=== PATIENT | female | born 1950 | race Caucasian/White ===

== ENCOUNTER 2019-02-12 19:21 | Emergency (ER) | payer MEDICARE, OTHER ==
--- NOTE | 2019-02-12 19:56 | EDM.PDOC ---
ED HPI GENERAL MEDICAL PROBLEM - General Chief Complaint: Lower Extremity Injury/Pain Stated Complaint: PT FELL OUTSIDE ON BOTH KNEES IN PAIN Time Seen by Provider: 02/12/19 19:42 Source of Information: Reports: Patient, Family (daughter) History Limitations: Reports: No Limitations - History of Present Illness INITIAL COMMENTS - FREE TEXT/NARRATIVE: 68-year-old female presents the ED after missing a stair at her neighbor's home and tripping and falling. She landed on outstretched hands and both knees. The left knee was injured worse than the right. 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 2010 suffered a comminuted fracture of her distal left femur requiring plating and rodding I believe. She is complaining of significant pain in the left knee and proximal tib-fib with difficulty walking. Pain also when she tries to oven roaster my fingers with her left hand. Hard amount of ecchymoses appreciated over both anterior knees. Plan x- ray left femur and left tib-fib. X-ray right tib-fib which will show me her knee. An x-ray left hand. Of note the patient is on Plavix on her med list although she doesn't think she's on this anymore. She is only on aspirin once daily and therefore the ecchymoses is exacerbated by this. Onset: Today Onset Date: 02/12/19 Onset Time: 17:30 Duration: Hour(s): Location: Reports: Upper Extremity, Left (Left hand and wrist), Upper Extremity , Right (Right hand and wrist but full range of motion), Lower Extremity, Left ( Left knee and proximal tib-fib), Lower Extremity, Right (Right knee) Quality: Reports: Ache, Throbbing Severity: Moderate (Especially in the left knee and proximal tib-fib.) Improves with: Reports: Rest Worsens with: Reports: Other Context: Reports: Trauma (Tripped and fell and missed a stair landing on concrete both knees and both outstretched hands.). Denies: Activity, Exercise, Lifting, Sick Contact Associated Symptoms: Reports: Other (Did not hit her head.). Denies: Confusion , Chest Pain, Cough, cough w sputum, Diaphoresis, Fever/Chills, Headaches, Loss of Appetite, Malaise, Nausea/Vomiting Treatments BREAKDOWN MAN: Reports: Other (see below) (None.) Bilateral Knee Pain Score (Numeric/FACES): 4 Left Wrist Pain Score (Numeric/FACES): 6 - Related Data Allergies Allergy/AdvReac Type Severity Reaction Status Date / Time No Known Allergies Allergy Verified 02/12/19 19:49 Home Meds: Home Meds Ascorbic Acid [Vitamin C] 500 mg PO DAILY 08/24/15 [History] Aspirin [Adult Low Dose Aspirin EC] 81 mg PO DAILY 08/24/15 [History] Biotin 5 mg PO DAILY 08/24/15 [History] Calcium Carb & Citrate/Vit D3 [Calcium + D3 ER Tablet] 1 each PO DAILY 08/24/15 [History] Cholecalciferol (Vitamin D3) [Vitamin D] 5,000 unit PO DAILY 08/24/15 [History] Clopidogrel [Plavix] 75 mg PO DAILY 08/24/15 [History] Lisinopril 10 mg PO DAILY 08/24/15 [History] Multivitamin [Multivitamins] 1 each PO DAILY 08/24/15 [History] Nitroglycerin 0.4 mg SL ASDIRECTED PRN 08/24/15 [History] atorvaSTATin [Lipitor] 40 mg PO BEDTIME 08/24/15 [History] Past Medical History Cardiovascular History: Reports: CAD, High Cholesterol, Hypertension Endocrine/Metabolic History: Reports: Obesity/BMI 30+ - Past Surgical History Cardiovascular Surgical History: Reports: Coronary Artery Stent Musculoskeletal Surgical History: Reports: Knee Replacement, ORIF Social & Family History - Caffeine Use Caffeine Use: Reports: None - Living Situation & Occupation Living situation: Reports: , Alone Occupation: Retired Review of Systems - Review of Systems Review Of Systems: See Below Constitutional: Reports: No Symptoms Eyes: Reports: Glasses Mouth/Throat: Reports: No Symptoms Respiratory: Reports: Shortness of Breath Cardiovascular: Reports: Other (Chronic dependent edema.). Denies: Chest Pain, Edema, Irregular Heart Rate Genitourinary: Reports: Other Musculoskeletal: Reports: No Symptoms, Neck Pain, Back Pain Skin: Reports: No Symptoms Neurological: Reports: No Symptoms Psychiatric: Reports: No Symptoms ED EXAM, GENERAL - Physical Exam Exam: See Below Exam Limited By: No Limitations General Appearance: Alert, WD/WN, Anxious, Mild Distress, Other (She is mad at herself for missing the stair and causing an accident.) Eye Exam: Bilateral Eye: Normal Inspection Throat/Mouth: Normal Inspection, Normal Lips, Normal Oropharynx, Other Head: Atraumatic, Normocephalic (No signs of head or facial trauma.) Neck: Normal Inspection, Supple, Limited Range of Motion. No: Full Range of Motion, Lymphadenopathy (L), Lymphadenopathy (R) Respiratory/Chest: No Respiratory Distress, Lungs Clear, Normal Breath Sounds, No Accessory Muscle Use Cardiovascular: Normal Peripheral Pulses, Regular Rate, Rhythm, No Murmur, No Rub. No: No Edema Peripheral Pulses: 1+: Posterior Tibial (L), Posterior Tibial (R), Dorsalis Pedis (L), Dorsalis Pedis (R) GI/Abdominal: Normal Bowel Sounds (Pulses are difficult to feel because of some edema around the ankles bilaterally.), Soft, Non-Tender, No Organomegaly, Other (No evidence of injury. Moderately obese.) Extremities: Other (Patient has ecchymoses over the right anterior knee with previous well-healed midline scar from total knee replacement. She does have full range of motion of the knee however with no crepitus and minimal pain. On the left side there is a large amount of hematoma over the knee and proximal tib -fib. She is able to keep it extended but flexion of the knee causes increased pain. Her previous fracture distal left femur with rodding and plating required. She also has pain in her left hand went on attempt to oven roaster my fingers. No pain in either wrist. Right hand uninjured.) Neurological: Alert, Oriented, CN II-XII Intact, Normal Cognition, Normal Gait Psychiatric: Normal Affect, Normal Mood Skin Exam: Warm, Dry, Intact, Normal Color, Ecchymosis (Marked ecchymoses of the left anterior knee and proximal tib-fib. Milder ecchymoses dorsal aspect right knee.) Course - Vital Signs Last Recorded V/S: Last Vital Signs Temp 37.2 C 02/12/19 19:46 Pulse 94 02/12/19 19:46 Resp 16 02/12/19 19:46 BP 165/55 H 02/12/19 19:46 Pulse Ox 95 02/12/19 19:46 - Orders/Labs/Meds Orders: Active Orders 24 hr Category Date Time Status Femur Min 2V Lt [CR] Stat Exams 02/12/19 19:52 Taken Hand Comp Min 3V Lt [CR] Stat Exams 02/12/19 19:54 Taken Tibia Fibula Lt [CR] Stat Exams 02/12/19 19:53 Taken Tibia Fibula Rt [CR] Stat Exams 02/12/19 19:54 Taken - Radiology Interpretation Free Text/Narrative:: 68-year-old female presents to the ED for evaluation of injuries primarily to both knees and left proximal tib-fib after falling down a stair. She missed a stair going down and fell onto concrete sidewalk on outstretched hands. She has contused and injured the dorsal aspect of her left hand. She has marked ecchymoses left knee and left proximal tib-fib and both knees have been replaced in the past. There is milder ecchymoses over the anterior aspect of the right knee. Plan x-ray of the right tib-fib to be done. X-ray left femur and left tib-fib. X-ray left hand to be done. - Re-Assessments/Exams Free Text/Narrative Re-Assessment/Exam: 02/12/19 21:12 x-rays of the left hand show marked osteopenia degenerative arthritic changes particularly at the first MCP joint but no fractures identified in the carpal bones or the hand bones. Right tib-fib reveal her right knee prosthesis to be in good position with no fractures above or below bili prosthesis. On the left side she has a plate that travels at least intermediate up her femur on the lateral aspect with 11 screws holding it in position. There is a large amount of callosity just above the knee prosthesis superiorly of the in the femur there is no fractures identified. The knee prosthesis itself appears to be intact. The tib-fib also is osteopenic but I don't see any fractures. Or that she has been banged up without any broken bones. She has a walker to aid her gait. She prefers to use Tylenol only for pain. Advised to follow-up with her doctor regarding her osteopenia. It appears that she was on some form of biphosphonate for several years and likely taken off. If not she needs a DEXA scan with thought of reintroducing the biphosphonate medication is bones are very osteopenic on exam. Departure - Departure Time of Disposition: 21:14 Disposition: Home, Self-Care 01 Condition: Fair Clinical Impression: Contusion of left hand, initial encounter, Contusion of right knee, initial encounter, Contusion of knee, Osteopenia after menopause Contusion of left knee and lower leg Qualifiers: Encounter type: initial encounter Qualified Code(s): S80.02XA - Contusion of left knee, initial encounter - Discharge Information *PRESCRIPTION DRUG MONITORING PROGRAM REVIEWED*: Not Applicable *COPY OF PRESCRIPTION DRUG MONITORING REPORT IN PATIENT AIRAM: Not Applicable Instructions: Contusion, [id number] Referrals: Marci Meyer MD [Primary Care Provider] - Forms: ED Department Discharge Additional Instructions: Evaluation the emergency room tonight in regards to a fall at her neighbor's house and you missed a stair. His cognitive fall onto the concrete onto both of your knees and both of your hands. His resulted in contusion to the left hand but no fractures identified on x-ray. The bones in the hand are very osteopenic are very low on calcium. X-rays of your right knee and lower extremity do not reveal any broken bones in your prosthesis is in good position. Trace of the left femur reveal a large plate on the outer aspect of the left femur which travels up intermediate up your eg to be in good position without fracture. The knee prosthesis is also in good position without any fracture. The lower leg or tib- fib is also normal without any fractures. Therefore you have suffered multiple deep bone bruises. It's questionable whether he is still on Plavix or palpated her gel which is a blood thinner used for patients with heart stents. There is a lot of bruising for aspirin only. Expect the bruises to travel down the leg over the next week possibly even to the ankle due to gravity. Elevate your legs is much as possible. Ice packs to the knees one half hour out of every 4 hours for the next 2 days. Tylenol as needed for pain relief. Walk with the aid of your walker for the next 10 days until you healed up. - My Orders Last 24 Hours: My Active Orders 02/12/19 19:52 Femur Min 2V Lt [CR] Stat 02/12/19 19:53 Tibia Fibula Lt [CR] Stat 02/12/19 19:54 Hand Comp Min 3V Lt [CR] Stat Tibia Fibula Rt [CR] Stat - Assessment/Plan Last 24 Hours: My Active Orders 02/12/19 19:52 Femur Min 2V Lt [CR] Stat 02/12/19 19:53 Tibia Fibula Lt [CR] Stat 02/12/19 19:54 Hand Comp Min 3V Lt [CR] Stat Tibia Fibula Rt [CR] Stat
[2019-02-12 21:33] VITALS: BP 123/76; PULSE 82
--- NOTE | 2019-02-13 13:57 | CR ---
Right tibia and fibula: Two views of the right tibia and fibula were obtained. Comparison: No prior tibia or fibula exam. Knee prosthesis is seen. Osteopenia is noted. Several soft tissue calcifications are seen within the anterior miller which are felt to be incidental. No acute fracture or other bony abnormality is identified. Impression: 1. Findings as noted above. 2. Nothing acute is appreciated on right tibia and fibula study. Diagnostic code #2
--- NOTE | 2019-02-13 13:57 | CR ---
Left tibia and fibula: AP and lateral views of the left tibia and fibula were obtained. Comparison: No prior tibia or fibula study. Knee prosthesis is seen. Large plantar spur is noted. Small spur is noted at the attachment of the Achilles tendon to the calcaneus. Mild degenerative change is noted within the mid foot. Bony structures are osteopenic. No acute bony abnormality is appreciated. Impression: 1. Findings as noted above. 2. No acute abnormality is identified on the left tibia and fibula study. Diagnostic code #2
--- NOTE | 2019-02-13 15:09 | CR ---
Left femur: AP and lateral views of the left femur were obtained. Comparison: Previous left femur study of 06/22/13. Old healed fracture is noted within the distal femoral shaft. Plate and screws are present across the fracture line. Left knee prosthesis is noted. Osteopenia is present. No acute abnormality is appreciated. Impression: 1. Old healed fracture with orthopedic hardware. 2. Other findings as noted above. No acute bony abnormality is appreciated. Diagnostic code #2
--- NOTE | 2019-02-13 15:09 | CR ---
Left hand: Four views of the left hand were obtained. Comparison: No prior hand exam is available. Joint space narrowing is noted within the 3rd PIP joint. Mild joint space narrowing is noted off the distal navicular bone. Joint spaces otherwise are fairly well preserved. Bony structures are somewhat osteopenic. No discrete fracture or other bony abnormality is seen. Impression: 1. Osteopenia and mild degenerative change. 2. Nothing acute is appreciated on left hand exam. Diagnostic code #2
== END 2019-02-12 21:32 | disposition home or self-care (01) ==
LOC: JD.ED 19:21
DX: S80.01XA Contusion of right knee, initial encounter (principal); S80.02XA Contusion of left knee, initial encounter; S60.222A Contusion of left hand, initial encounter; N95.1 Menopausal and female climacteric states; M85.80 Other specified disorders of bone density and structure, unspecified site; I10 Essential (primary) hypertension; I25.10 Atherosclerotic heart disease of native coronary artery without angina pectoris; E78.00 Pure hypercholesterolemia, unspecified; Z79.82 Long term (current) use of aspirin; E66.9 Obesity, unspecified; Z95.5 Presence of coronary angioplasty implant and graft; Z79.01 Long term (current) use of anticoagulants; Z79.899 Other long term (current) drug therapy; W10.9XXA Fall (on) (from) unspecified stairs and steps, initial encounter; Y92.009 Unspecified place in unspecified non-institutional (private) residence as the place of occurrence of the external cause
CPT/HCPCS: 73130-26-LT; 73130-LT; 73552-26-LT; 73552-LT; 73590-26-LT; 73590-26-RT; 73590-LT; 73590-RT; 99283-25

== ENCOUNTER 2024-09-30 20:22 | Inpatient (IN) | payer MEDICARE, OTHER ==
[2024-09-30] MEDS ORDERED: Sodium Chloride 0.9% 10 ML Syringe FLUSH PRN (20:46)
[2024-09-30 21:02] LABS: BASOPHILS PERCENT AUTO 0.3 % (0.0-1.0); EOSINOPHILS ABSOLUTE AUTO 0.1 K/mm3 (0.0-0.4); EOSINOPHILS PERCENT AUTO 0.9 % (0.0-6.0); HEMATOCRIT 39.8 % (37.0-47.0); HEMOGLOBIN 13.1 gm/dl (12.0-16.0); IMMATURE GRAN ABSOLUTE AUTO 0.04 K/mm3 (0.00-0.05); IMMATURE GRAN PERCENT AUTO 0.5 % (0.0-0.4); LYMPHOCYTES ABSOLUTE AUTO 1.1 K/mm3 (1.0-4.8); LYMPHOCYTES PERCENT AUTO 13.7 % (24.0-44.0); MEAN CORPUSCULAR HGB CONC 32.9 g/dl (32.0-36.0); MEAN CORPUSCULAR VOLUME 91.3 fl (83.0-99.0); MEAN PLATELET VOLUME 8.9 fl (9.4-12.3); MONOCYTES ABSOLUTE AUTO 0.6 K/mm3 (0.0-0.8); MONOCYTES PERCENT AUTO 7.9 % (0.0-8.0); NEUTROPHILS ABSOLUTE AUTO 6.1 K/mm3 (1.8-7.7); NEUTROPHILS PERCENT AUTO 76.7 % (41.0-71.0); PLATELET COUNT,PLT 199 K/mm3 (150-400); RED BLOOD CELL COUNT 4.36 M/mm3 (4.10-5.30); WHITE BLOOD CELL COUNT,WBC 7.96 K/mm3 (3.9-11.3)
[2024-09-30 21:26] LABS: ALANINE AMINOTRANSFERASE,ALT 25 U/L (14-59); ALBUMIN 3.5 g/dl (3.4-5.0); ALKALINE PHOSPHATASE 70 U/L (46-116); ANION GAP 14.8 (5-15); ASPARTATE AMNIOTRANSFERASE,AST 19 U/L (15-37); BILIRUBIN TOTAL 0.4 mg/dL (0.2-1.0); BLOOD UREA NITROGEN,BUN 19 mg/dL (7-18); BUN/CREATININE RATIO 14.6 (14-18); CALCIUM 9.2 mg/dL (8.5-10.1); CARBON DIOXIDE,CO2 25 mEq/L (21-32); CHLORIDE,CL 104 mEq/L (98-107); CREATININE 1.3 mg/dL (0.55-1.02); ESTIMATED GFR 43 mL/min (>60); GLUCOSE RANDOM 120 mg/dL (70-99); POTASSIUM,K 3.8 mEq/L (3.5-5.1); PROTEIN TOTAL,TP 6.9 g/dl (6.4-8.2); SODIUM,NA 140 mEq/L (136-145)
[2024-09-30] MEDS: Acetaminophen 325 MG Tab PO ONE (21:32)
[2024-10-01] MEDS: Morphine 4 MG/ML Syringe IM ONE (01:11)
[2024-10-01] MEDS: LORazepam 1 MG Tab PO ONE (02:09)
[2024-10-01 02:19] LABS: APPEARANCE,URINE SLT CLOUDY (Clear); BILIRUBIN,URINE NEGATIVE (Negative); COLOR,URINE YELLOW (Yellow); GLUCOSE,URINE NEGATIVE (Negative); KETONES,URINE 2+ (Negative); LEUKOCYTE ESTERASE,URINE 1+ (Negative); NITRITE,URINE POSITIVE (Negative); OCCULT BLOOD,URINE TRACE-INTACT (Negative); PH,URINE 5.5 (5.0-8.0); PROTEIN,URINE 1+ (Negative); UROBILINOGEN,URINE 0.2 (0.2-1.0)
[2024-10-01 02:42] LABS: RBC,URINE 0-5 /hpf (0-5)
[2024-10-01 02:43] LABS: BACTERIA,URINE MANY /hpf (FEW); EPITHELIAL CELLS,URINE 0-5 /hpf (0-5); MUCUS,URINE NOT SEEN /hpf (FEW); WBC CLUMPS,URINE FEW /hpf (NOT SEEN)
[2024-10-01] MEDS: Acetaminophen/HYDROcodone 325-5 MG Tab PO ONE (07:33)
[2024-10-01] MEDS: Cephalexin 500 MG Cap PO ONE (07:34)
[2024-10-01] MEDS ORDERED: Naloxone 0.4 MG/ML SDV IVPUSH PRN (15:03)
[2024-10-01] MEDS ORDERED: Ondansetron 4 MG Tab.DIS PO PRN (15:03)
[2024-10-01] MEDS: Acetaminophen/HYDROcodone 325-5 MG Tab PO PRN (16:20)
[2024-10-01] MEDS: traZODone 50 MG Tab PO SCH (20:09)
[2024-10-01] MEDS: Melatonin 3 MG Tab PO PRN (20:09)
[2024-10-01] MEDS: Oxybutynin 5 MG Tab PO SCH (20:09)
[2024-10-01] MEDS: QUEtiapine 25 MG Tab PO SCH (22:02)
[2024-10-02] MEDS: HYDROmorphone 0.5 MG/0.5 ML Syringe IVPUSH PRN (03:59)
[2024-10-02] MEDS: cefTRIAXone 1 GM Vial IVPUSH SCH (09:45)
[2024-10-02] MEDS: Enoxaparin 40 MG/0.4 ML Syringe SUBCUT SCH (10:11)
[2024-10-02] MEDS: QUEtiapine 25 MG Tab PO SCH ×2 (11:32→17:44)
[2024-10-02] MEDS: Cyanocobalamin (Vitamin B12) 1,000 MCG Tab PO SCH (11:40)
[2024-10-02] MEDS: Bisacodyl 5 MG Tab PO PRN (11:44)
[2024-10-02] MEDS: Acetaminophen 325 MG Tab PO PRN (17:40)
[2024-10-03] MEDS: Polyethylene Glycol 3350 Powder 17 GM Packet PO SCH (11:55)
[2024-10-04] MEDS: Levofloxacin 750 MG Tab PO SCH ×2 (13:50→14:01)
[2024-10-05] MEDS: QUEtiapine 100 MG Tab PO SCH (08:03)
[2024-10-05] MEDS: Sennosides/Docusate Sodium 50-8.6 MG Tab PO PRN (20:49)
[2024-10-07] MEDS: Acetaminophen/HYDROcodone 325-5 MG Tab PO PRN (20:29)
[2024-10-08 08:14] VITALS: BP 140/87; PULSE 69
== END 2024-10-08 12:07 | DRG 563 ==
LOC: JD.ED 20:22 → JD.MS 10-01 15:03
PROVIDERS: ADMIT Student in an Organized Health Care Education/Training Program; ATTEND Family Medicine
PROC: 2W39XYZ Immobilization of Left Upper Extremity using Other Device (ICD-10-PCS; principal; 2024-10-01)
DX: S42.212A Unspecified displaced fracture of surgical neck of left humerus, initial encounter for closed fracture (principal); I10 Essential (primary) hypertension; S12.500A Unspecified displaced fracture of sixth cervical vertebra, initial encounter for closed fracture; N39.0 Urinary tract infection, site not specified; F02.84 Dementia in other diseases classified elsewhere, unspecified severity, with anxiety; W19.XXXA Unspecified fall, initial encounter; F02.83 Dementia in other diseases classified elsewhere, unspecified severity, with mood disturbance; Z68.42 Body mass index [BMI] 45.0-49.9, adult; Z66 Do not resuscitate; H54.7 Unspecified visual loss; I25.10 Atherosclerotic heart disease of native coronary artery without angina pectoris; E78.00 Pure hypercholesterolemia, unspecified; G30.9 Alzheimer's disease, unspecified; E66.9 Obesity, unspecified; Z96.653 Presence of artificial knee joint, bilateral; N18.9 Chronic kidney disease, unspecified; I12.9 Hypertensive chronic kidney disease with stage 1 through stage 4 chronic kidney disease, or unspecified chronic kidney disease; M16.0 Bilateral primary osteoarthritis of hip; K59.00 Constipation, unspecified; B96.20 Unspecified Escherichia coli [E. coli] as the cause of diseases classified elsewhere; Z88.4 Allergy status to anesthetic agent; Z79.899 Other long term (current) drug therapy; Z95.5 Presence of coronary angioplasty implant and graft; Z90.49 Acquired absence of other specified parts of digestive tract; W01.0XXA Fall on same level from slipping, tripping and stumbling without subsequent striking against object, initial encounter
CPT/HCPCS: 36415; 70450; 70450-26; 71045; 71045-26; 72125; 72125-26; 72170; 72170-26; 73060-26-LT; 73060-LT; 73090-26-LT; 73090-LT; 73120-26-LT; 73120-LT; 80053; 81001; 85025; 87086; 87088; 87186; 94761; 96372; 97110-GP; 97116-GP; 97162-GP; 97166-GO; 97530-GO; 97530-GP; 97535-GO; 99284; 99285; A9270-GY; J0696; J1650; J2270; U0002